=== PATIENT | male | born 1975 | race Caucasian/White ===

== ENCOUNTER 2016-12-24 19:00 | Emergency (ER) | payer MEDICAID ==
[~2016-12-24] VITALS: Ht 170.2 cm; Wt 99.8 kg
[2016-12-24 19:15] VITALS: BP 115/71; PULSE 71; RESP 19; TEMP 97; O2SAT 96
--- NOTE | 2016-12-24 19:15 | NUR ---
Patient triaged and placed in waiting room. VSS and patient appears in no acute distress at this time. Accompanied by FRIEND, awaiting available bed, and MD notified of need for MSE.
--- NOTE | 2016-12-24 20:14 | NUR ---
Patient to ER bed 1 to gown for evaluation. Side rails up.
--- NOTE | 2016-12-24 20:15 | NUR ---
PT IS AOX4, C/O HEADACHE X 3 WEEKS AND TODAY GOT WORST ASSOCIATED WITH N/V. PAIN SCALE 10/10. V/S WITHIN NORMAL LIMITS.
--- NOTE | 2016-12-24 20:45 | NUR ---
ER at bedside examining patient.
[2016-12-24] MEDS ORDERED: NACL 0.9% 1,000 ML IV ONE (20:53)
[2016-12-24] MEDS ORDERED: DIPHENHYDRAMINE INJ 50 MG/ML VIAL IVP ONE (21:00)
[2016-12-24] MEDS ORDERED: chlorproMAZINE HCL 50 MG/ 2 ML AMP IV ONE (21:00)
[2016-12-24] MEDS ORDERED: MECLIZINE HCL 25 MG TABLET (ANITVERT) PO ONE (22:30)
[2016-12-24 22:50] VITALS: BP 128/69; PULSE 70; RESP 19; TEMP 97; O2SAT 96
--- NOTE | 2016-12-24 22:50 | NUR ---
Patient given written and verbal discharge instructions and verbalizes understanding. ER MD discussed with patient the results and treatment provided. Patient in stable condition. ID arm band removed. IV catheter removed intact and dressing applied, no active bleeding. Rx of ANTIVERT 25 MG given. Patient educated on pain management and to follow up with PMD. Pain Scale 0/10. Opportunity for questions provided and answered.
== END 2016-12-24 22:50 | disposition home or self-care (01) ==
LOC: SED 19:00
DX: R51 Headache (principal); R42 Dizziness and giddiness; R11.10 Vomiting, unspecified; I10 Essential (primary) hypertension; E78.00 Pure hypercholesterolemia, unspecified; F17.210 Nicotine dependence, cigarettes, uncomplicated
CPT/HCPCS: 70450; 96361; 96374; 96375; 99284; J1200; J3230; J7030; J8597

== ENCOUNTER 2019-04-19 08:33 | Emergency (ER) | payer MEDICAID ==
[~2019-04-19] VITALS: Ht 172.7 cm; Wt 90.7 kg
[2019-04-19 08:37] VITALS: BP_SYST 136
--- NOTE | 2019-04-19 08:42 | NUR ---
Patient to ER bed 2 to gown for evaluation. Side rails up. Report given to Omer LIU.
--- NOTE | 2019-04-19 08:44 | NUR ---
Patient came into ED due to R heel pain from falling about 6 ft out of a truck this morning around 5am. He states he was at work at the time and he continued to work after the fall, but as he continued to ambulate and put pressure on his heel the pain became unbearable when weight applied. Patient states that his pain is around 7/8 when he's not putting pressure on his heel, but a 10 with weight and upon palpation. Patient is A&Ox4. Will medicate and continue to monitor.
[2019-04-19] MEDS ORDERED: IBUPROFEN 800 MG TABLET PO ONE (08:45)
--- NOTE | 2019-04-19 08:48 | NUR ---
ROSANA Vance at bedside examining patient.
--- NOTE | 2019-04-19 08:52 | NUR ---
Patient medicated for pain, tolerated well. Will continue to monitor.
--- NOTE | 2019-04-19 09:22 | NUR ---
Patient states medication has helped, pain level has improved.
--- NOTE | 2019-04-19 09:45 | NUR ---
Patient states that his pain has improved.
--- NOTE | 2019-04-19 10:00 | NUR ---
Crutches adgusted to patient's height. Taught patient how to correctly walk with crutches. Patient returned demonstration.
[2019-04-19 10:05] VITALS: BP_SYST 136
--- NOTE | 2019-04-19 10:05 | NUR ---
Patient given written and verbal discharge instructions and verbalizes understanding. ER MD discussed with patient the results and treatment provided. Patient in stable condition. ID arm band removed. Rx of Motrin given. Patient educated on pain management and to follow up with PMD. Pain Scale 6/10. Opportunity for questions provided and answered. Medication side effect fact sheet provided.
--- NOTE | 2019-04-19 10:50 | NUR ---
Note undone in EDM - 04/19/19 at 1051 by [facility] Patient given written and verbal discharge instructions and verbalizes understanding. ER discussed with patient the results and treatment provided. Patient in stable condition. ID arm band removed. Rx of Motrin given. Patient educated on pain management and to follow up with PMD. Pain Scale 6/10. Opportunity for questions provided and answered. Medication side effect fact sheet provided.
== END 2019-04-19 10:05 | disposition home or self-care (01) ==
LOC: SED 08:33
DX: S93.601A Unspecified sprain of right foot, initial encounter (principal); E78.00 Pure hypercholesterolemia, unspecified; I10 Essential (primary) hypertension; W18.39XA Other fall on same level, initial encounter; Y93.89 Activity, other specified; Y92.69 Other specified industrial and construction area as the place of occurrence of the external cause; Y99.8 Other external cause status
CPT/HCPCS: 99283

== ENCOUNTER 2022-10-22 00:05 | Emergency (ER) | payer MEDICAID, OTHER ==
--- NOTE | 2022-10-22 01:00 | NUR ---
Patient called to triage x 3, no answer. Patient left without being seen/triaged. No further care provided. ER MD aware
== END 2022-10-22 01:00 | disposition left against medical advice (07) ==
LOC: SED 00:05
DX: M79.605 Pain in left leg (principal); Z53.21 Procedure and treatment not carried out due to patient leaving prior to being seen by health care provider